=== PATIENT | female | born 1990 | race Caucasian/White ===

== ENCOUNTER 2017-01-28 16:48 | Emergency (ER) | payer OTHER ==
[2017-01-28 19:19] LABS: BASOPHIL 0.3 % (0-2); EOSINOPHIL 2.7 % (0-5); HCT 38.2 % (37.0-47.0); LYMPHOCYTE 37.4 % (15-48); MCH 32.3 pg (25.0-31.0); MONOCYTE 6.7 % (0-12); MPV 9.3 fL (6.0-9.5); NEUTROPHIL 52.9 % (41-80); PLT 287 K/uL (150-400); RBC 4.02 M/uL (4.20-5.40); RDW 12.8 % (11.5-14.0)
[2017-01-28 19:31] LABS: CREATININE 0.8 mg/dL (0.5-1.0); POTASSIUM 4.2 mmol/L (3.5-5.1)
== END 2017-01-28 20:02 | disposition home or self-care (01) ==
LOC: FER 16:48
PROVIDERS: Internal Medicine
DX: N64.4 Mastodynia (principal); Z98.82 Breast implant status; F17.210 Nicotine dependence, cigarettes, uncomplicated; Z79.899 Other long term (current) drug therapy
CPT/HCPCS: 36415; 80048; 85025